=== PATIENT | female | born 1950 | race Two or more races ===

== ENCOUNTER 2017-09-26 00:14 | Emergency (ER) | payer MEDICAID, MEDICARE, OTHER ==
[~2017-09-26] VITALS: Ht 149.9 cm; Wt 77.1 kg
[~2017-09-26 00:14] MED LIST: ASPI81CH43; ATEN1TAB38; GABA100C; HYDR12.527; POTA99TA13
[2017-09-26 00:15] VITALS: BP 170/66
== END 2017-09-26 03:30 | disposition left against medical advice (07) ==
LOC: ER 00:16
DX: L50.0 Allergic urticaria (principal); Z53.21 Procedure and treatment not carried out due to patient leaving prior to being seen by health care provider

== ENCOUNTER 2018-01-18 20:18 | Emergency (ER) | payer OTHER ==
[~2018-01-18] VITALS: Ht 154.9 cm; Wt 79.4 kg
[2018-01-18 21:00] VITALS: BP 152/80
[2018-01-18 21:14] LABS: Basophils # (auto) 0 uL; Eosinophils # (auto) 0.2 uL; Lymphocytes # (auto) 2.7 uL; Lymphocytes % (auto) 31.9 % (10.0-50.0); Nucleated Red Blood Cells % 0.1 %
[2018-01-18 21:16] LABS: Basophils % (auto) 0.6 % (0.0-2.0); Eosinophils % (auto) 2.4 % (0.0-7.0); Hematocrit 42.5 % (36.0-46.0); Hemoglobin 13.6 g/dL (12.2-16.2); Mean Corpuscular Hemoglobin 22.5 pg (28.0-32.0); Mean Corpuscular Hgb Conc. 31.9 g/dL (32.0-36.0); Mean Corpuscular Volume 70.6 fL (80.0-100.0); Monocytes # (auto) 0.6 uL; Monocytes % (auto) 7.6 % (0.0-12.0); Neutrophils # (auto) 4.9 uL; Neutrophils % (auto) 57.5 % (37.0-80.0); Platelet Count (auto) 181 10^3/uL (140-450); Red Blood Cells 6.02 10^6/uL (4.0-5.20); Red Cell Distribution Width 15.3 % (11.8-14.3); White Blood Cell 8.5 10^3/uL (4.4-10.8)
[2018-01-18 21:21] LABS: Urine Bacteria NONE SEEN /hpf (None Seen); Urine Blood Negative /uL (Negative); Urine Mucus FEW (None Seen); Urine WBC 9 /hpf (0 - 5)
[2018-01-18 21:32] LABS: Albumin 3.7 g/dL (3.4-5.0); Calcium 8.4 mg/dL (8.5-10.1)
[2018-01-18 21:38] LABS: INR 0.94 (0.9-1.15); Prothrombin Time 10.1 sec (9.27-12.13)
[2018-01-18 21:44] LABS: BUN/Creatinine Ratio 15.2; Bilirubin, Total 0.6 mg/dL (0.2-1.0)
[2018-01-18 21:45] LABS: Total Protein 8.2 g/dL (6.4-8.2)
== END 2018-01-18 23:06 | disposition home or self-care (01) ==
LOC: ER 20:18
DX: I10 Essential (primary) hypertension (principal); N39.0 Urinary tract infection, site not specified; M10.9 Gout, unspecified; Z88.0 Allergy status to penicillin; Z79.899 Other long term (current) drug therapy
CPT/HCPCS: 36415; 80053; 81001; 84484; 84550; 85025; 85610; 85730; 93005; 94761